=== PATIENT | female | born 1980 ===

== ENCOUNTER 2025-02-02 08:00 | Inpatient (IN) | payer OTHER ==
[~2025-02-02] VITALS: Ht 172.7 cm; Wt 137.0 kg
[2025-02-06] MEDS ORDERED: PEMBROLIZUMAB (08:37)
[2025-02-06 08:45] VITALS: BP 109/68
[2025-02-06 08:56] LABS: BASO % 0.6 % (0.1-1.2); EOS # 0.35 (0.04-0.54); EOS % 6.8 % (0.7-7.0); LYMPH # 0.47 (1.18-3.74); LYMPH % 9.1 % (19.3-53.1); MEAN PLATELET VOLUME 10.40 fl (9.4-12.4); MONO # 0.32 (0.24-0.82); MONO % 6.2 % (4.7-12.5); NEUT # 3.96 (1.56-6.13); NEUT % 76.7 % (34.0-71.1); RED CELL DISTRIBUTION WIDTH 16.6 % (11.6-14.4)
[2025-02-06 09:01] LABS: URINE APPEARANCE Clear; URINE BILIRRUBIN Negative (NEGATIVE); URINE BLOOD Negative; URINE COLOR Yellow; URINE GLUCOSE Negative (NEGATIVE); URINE KETONE Negative (NEGATIVE); URINE LEUKOCYTE Trace; URINE NITRATE Negative; URINE PROTEIN Negative (NEGATIVE); URINE UROBILINOGEN 0.2 E.U./dl
[2025-02-06 09:06] LABS: URINE BACTERIA 127.2 uL (0.0-1933); URINE EPITHELIAL CELLS 9.8 uL (0.0-38.8); URINE WBC 34.3 uL (0.0-23.2)
[2025-02-06 09:13] LABS: URINE CAST 0.73 uL (0.0-1.40); URINE RBC 1.7 uL (0.0-20.8)
[2025-02-06 09:28] LABS: INR 0.94
[2025-02-06 10:06] LABS: ALT/SGPT 22.0 U/L (12-78); AST/SGOT 13.0 U/L (15-37); BILIRUBIN TOTAL 0.57 mg/dL (0.3-1.2); BUN CREA RATIO 20.0 (7.0-25.0); CREATININE SERUM 1.04 mg/dL (0.55-1.02); GFR 57.3; GLOBULINA 3.9 G/DL (2.4-3.5); GLUCOSE FASTING 85.0 mg/dL (65-100); OSMOLALITY SERUM 291.0 MOSM/KG (275-295)
[2025-02-12] MEDS ORDERED: ENALAPRILAT DIHYDRATE 1.25 MG/ML VIAL IV PRN (10:45)
[2025-02-12] MEDS ORDERED: ONDANSETRON HCL 2 MG/ML VIAL IV PRN (10:45)
[2025-02-12] MEDS ORDERED: MORPHINE SULFATE 4 MG/ML VIAL IV ONE (11:20)
[2025-02-12] MEDS ORDERED: PROMETHAZINE HCL 25 MG/ML AMPUL IV ONE (13:00)
[2025-02-12 13:40] VITALS: BP 116/78; O2SAT 97
[2025-02-12 16:00] VITALS: BP 119/77; O2SAT 94
[2025-02-12] MEDS ORDERED: DIPHENHYDRAMINE HCL 37.5 MG,LIDOCAINE HCL 15 ML,MAG HYDROX/ALUMINUM HYD/SIMETH 15 ML PO SCH (17:00)
[2025-02-12] MEDS ORDERED: TRAMADOL HCL 50 MG TABLET PO SCH (17:00)
[2025-02-12] MEDS ORDERED: ACETAMINOPHEN 500 MG GEL..CAP PO SCH (17:00)
[2025-02-12] MEDS ORDERED: CYCLOBENZAPRINE HCL 5 MG TABLET PO SCH (17:00)
[2025-02-12] MEDS ORDERED: PANTOPRAZOLE SODIUM 40 MG/VIAL VIAL IV PUSH SCH (21:00)
[2025-02-12] MEDS ORDERED: Calcium Carbonate 1 TAB TABLET PO SCH (21:00)
[2025-02-13 00:52] VITALS: BP 96/57
[2025-02-13 08:18] VITALS: BP 134/81; O2SAT 96
== END 2025-02-13 11:18 | disposition home or self-care (01) | DRG 627 ==
LOC: O/R 02-12 05:48 → SURH 02-12 08:00
PROVIDERS: ADMIT Surgery; ATTEND Surgery
PROC: 0GTG0ZZ Resection of Left Thyroid Gland Lobe, Open Approach (ICD-10-PCS; principal; 2025-02-12 12:00)
DX: C73 Malignant neoplasm of thyroid gland (principal)